=== PATIENT | female | born 1975 | race American Indian/Alaskan Native ===

== ENCOUNTER 2017-02-21 00:30 | Emergency (ER) | payer MEDICAID ==
[2017-02-21 00:44] VITALS: BP 138/112
[2017-02-21 02:49] LABS: Basophils % (Auto) 0.7 % (0.0-1.8); Eosinophils % (Auto) 0.2 % (0.0-4.3); Hematocrit 49.6 % (30.3-42.9); Mean Corpuscular HGB Conc 34 % (30-34); Mean Corpuscular Hemoglobin 30 pg (28-32); Mean Corpuscular Volume 89 fl (79-97); Platelet Count 325 K/mm3 (140-440); Red Blood Count 5.59 M/mm3 (3.65-5.03); Red Cell Distribution Width 13.8 % (13.2-15.2); White Blood Count 11.5 K/mm3 (4.5-11.0)
[2017-02-21 03:09] LABS: Alanine Aminotransferase 19 units/L (7-56); Albumin 5.6 g/dL (3.9-5); Albumin/Globulin Ratio 1.2 %; Alkaline Phosphatase 72 units/L (35-129); Anion Gap 30 mmol/L; BUN/Creatinine Ratio 7.56; Blood Urea Nitrogen 28 mg/dL (7-17); Calcium 11.2 mg/dL (8.4-10.2); Carbon Dioxide 18 mmol/L (22-30); Chloride 91.8 mmol/L (98-107); Glucose 170 mg/dL (65-100); Lipase 52 units/L (13-60); Potassium 3.9 mmol/L (3.6-5.0); Sodium 136 mmol/L (137-145); Total Protein 10.3 g/dL (6.3-8.2)
== END 2017-02-21 10:27 | disposition left against medical advice (07) ==
LOC: ED 00:30
DX: R10.9 Unspecified abdominal pain (principal); R11.10 Vomiting, unspecified; Z53.21 Procedure and treatment not carried out due to patient leaving prior to being seen by health care provider
CPT/HCPCS: 36415; 80053; 83690; 85025